=== PATIENT | female | born 1985 | race Caucasian/White ===

== ENCOUNTER 2022-01-25 00:55 | Inpatient (IN) | payer BC ==
[2022-01-25] MEDS ORDERED: ELECTROLYTE-148 SOLN 500 ML IV ONE (01:15)
[2022-01-25 02:27] VITALS: BMI 28.7
[2022-01-25 02:27] LABS: BASO % 0.3 % (0-2.0); EOS % 1.2 % (0-4.5); HEMATOCRIT 37.4 % (32.4-45.2); HEMOGLOBIN 12.8 GM/dL (10.7-15.3); LYMPH % 26.1 % (8-40); MCH 30.2 pg (25.7-33.7); MCHC 34.1 g/dl (32.0-36.0); MEAN CELL VOLUME 88.5 fl (80-96); MEAN PLT VOLUME 8.2 fl (7.5-11.1); MONO % 8.8 % (3.8-10.2); NEUT % 63.6 % (42.8-82.8); PLATELET COUNT 258 10^3/uL (134-434); RBC 4.23 M/mm3 (3.60-5.2); RDW 14.2 % (11.6-15.6); WHITE BLOOD COUNT 9.6 K/mm3 (4.0-10.0)
[2022-01-25 02:45] LABS: INR 0.94 (0.83-1.09); PROTHROMBIN TIME (PATIENT) 10.8 SEC (9.7-13.0)
[2022-01-25 02:48] LABS: ACTIVATED PTT 25.2 SECONDS (25.2-36.5)
[2022-01-25] MEDS ORDERED: TERBUTALINE SULFATE 1 MG/1 ML VIAL SQ ONE ×2 (02:49→06:30)
[2022-01-25 02:54] LABS: CALCIUM 8.9 mg/dL (8.5-10.1)
[2022-01-25] MEDS ORDERED: CITRIC ACID/SODIUM CITRATE 30 ML UNIT-DOSE CUP PO ONE (02:54)
[2022-01-25 02:55] LABS: BLOOD UREA NITROGEN 8.3 mg/dL (7-18)
[2022-01-25] MEDS ORDERED: ceFAZolin 2 GRAM PREMIX BAG IVPB STA (02:56)
[2022-01-25 02:59] LABS: CREATININE 0.5 mg/dL (0.55-1.3)
[2022-01-25] MEDS ORDERED: ONDANSETRON 4 MG/2 ML VIAL IVPUSH PRN (03:06)
[2022-01-25] MEDS ORDERED: morphine SULFATE/PF 1 MG/2 ML (2cc Syringe - QUVA) EP ONE (03:06)
[2022-01-25] MEDS ORDERED: SODIUM CHLORIDE 0.9% P/F 10 ML VIAL IJ ONE (03:16)
[2022-01-25] MEDS ORDERED: ceFAZolin SODIUM 1 GM VIAL ONE (03:16)
[2022-01-25] MEDS ORDERED: PHENYLEPHRINE HCL 10 MG/1 ML SINGLE DOSE VIAL ONE (03:33)
[2022-01-25] MEDS ORDERED: OXYTOCIN 10 UNITS/ML VIAL ONE ×2 (03:58→04:42)
[2022-01-25] MEDS ORDERED: ONDANSETRON 4 MG/2 ML VIAL ONE (04:06)
[2022-01-25] MEDS ORDERED: MIDAZOLAM HCL 2 MG/2 ML SINGLE DOSE VIAL ONE (04:17)
[2022-01-25] MEDS ORDERED: IBUPROFEN 800 MG/8 ML IJ IVPB PRN (04:53)
[2022-01-25] MEDS ORDERED: METHYLERGONOVINE MALEATE 0.2 MG/1 ML AMP IM PRN (04:53)
[2022-01-25] MEDS ORDERED: ACETAMINOPHEN 325 MG TABLET (FP) PO PRN (04:53)
[2022-01-25] MEDS: OXYTOCIN 20 UNITS in 0.9% NS 20 UNIT/1,000 ML INFUS.BAG IV SCH ×2 (05:00→16:32)
[2022-01-25 05:14] LABS: CORD BASE EXCESS -5.5 mmol/L (0-2); CORD HCO3 24.1 mmHg (20-29); CORD pH 7.193 (7.14-7.44)
[2022-01-25 05:17] LABS: CORD BASE EXCESS -6.1 mmol/L (0-2); CORD HCO3 21.2 mmHg (20-29); CORD PCO2 48.1 mmHg (30-78); CORD pH 7.262 (7.14-7.44)
[2022-01-25 07:54] LABS: HIV INTERPRETATION NEGATIVE (NEGATIVE)
[2022-01-25] MEDS: FERROUS SO4 325 MG TABLET (FP) PO SCH ×2 (10:37→22:14)
[2022-01-25] MEDS: PRENATAL VITAMINS W/ FOLIC ACID TABLET (FP) PO SCH (10:37)
[2022-01-25] MEDS: ENOXAPARIN NA (PORCINE) 40 MG/0.4 ML DISP.SYRIN SQ SCH (12:19)
[2022-01-25] MEDS ORDERED: OXYTOCIN 20 UNITS in 0.9% NS 20 UNIT/1,000 ML INFUS.BAG IV ONE (16:26)
[2022-01-25] MEDS ORDERED: oxyCODONE HCL 5 MG TABLET PO PRN (16:53)
[2022-01-25] MEDS: IBUPROFEN 600 MG TABLET (FP) PO PRN (18:26)
[2022-01-26] MEDS ORDERED: BISACODYL 10 MG SUPP.RECT RC PRN (04:53)
[2022-01-26] MEDS: oxyCODONE HCL 5 MG TABLET PO PRN ×2 (08:03→19:24)
[2022-01-26] MEDS: SIMETHICONE 80 MG TAB.CHEW (FP) PO PRN ×3 (08:03→19:24)
[2022-01-26 08:38] LABS: BASO % 0.3 % (0-2.0); EOS % 0.7 % (0-4.5); HEMATOCRIT 32.5 % (32.4-45.2); HEMOGLOBIN 11.1 GM/dL (10.7-15.3); LYMPH % 12.4 % (8-40); MCH 30.9 pg (25.7-33.7); MCHC 34.3 g/dl (32.0-36.0); MEAN CELL VOLUME 89.9 fl (80-96); MEAN PLT VOLUME 8.1 fl (7.5-11.1); MONO % 6.5 % (3.8-10.2); NEUT % 80.1 % (42.8-82.8); PLATELET COUNT 209 10^3/uL (134-434); RBC 3.61 M/mm3 (3.60-5.2); RDW 14.1 % (11.6-15.6); WHITE BLOOD COUNT 10.2 K/mm3 (4.0-10.0)
[2022-01-26] MEDS: FERROUS SO4 325 MG TABLET (FP) PO SCH ×2 (11:55→21:42)
[2022-01-26] MEDS: ENOXAPARIN NA (PORCINE) 40 MG/0.4 ML DISP.SYRIN SQ SCH (11:55)
[2022-01-26] MEDS: PRENATAL VITAMINS W/ FOLIC ACID TABLET (FP) PO SCH (11:55)
[2022-01-26] MEDS: IBUPROFEN 600 MG TABLET (FP) PO PRN (15:01)
[2022-01-27] MEDS: oxyCODONE HCL 5 MG TABLET PO PRN ×2 (08:04→20:46)
[2022-01-27] MEDS: ENOXAPARIN NA (PORCINE) 40 MG/0.4 ML DISP.SYRIN SQ SCH (09:51)
[2022-01-27] MEDS: PRENATAL VITAMINS W/ FOLIC ACID TABLET (FP) PO SCH (09:51)
[2022-01-27] MEDS: FERROUS SO4 325 MG TABLET (FP) PO SCH ×2 (09:51→21:01)
[2022-01-27] MEDS: IBUPROFEN 600 MG TABLET (FP) PO PRN (14:05)
[2022-01-27] MEDS: SIMETHICONE 80 MG TAB.CHEW (FP) PO PRN (20:45)
[2022-01-28 07:23] LABS: BASO % 0.6 % (0-2.0); EOS % 4.4 % (0-4.5); HEMATOCRIT 29.6 % (32.4-45.2); HEMOGLOBIN 10.2 GM/dL (10.7-15.3); LYMPH % 23.7 % (8-40); MCH 30.6 pg (25.7-33.7); MCHC 34.4 g/dl (32.0-36.0); MONO % 7.9 % (3.8-10.2); NEUT % 63.4 % (42.8-82.8); PLATELET COUNT 240 10^3/uL (134-434); RBC 3.32 M/mm3 (3.60-5.2); RDW 14.2 % (11.6-15.6); WHITE BLOOD COUNT 7.2 K/mm3 (4.0-10.0)
[2022-01-28] MEDS: PRENATAL VITAMINS W/ FOLIC ACID TABLET (FP) PO SCH (10:08)
[2022-01-28] MEDS: FERROUS SO4 325 MG TABLET (FP) PO SCH (10:08)
[2022-01-28] MEDS: ENOXAPARIN NA (PORCINE) 40 MG/0.4 ML DISP.SYRIN SQ SCH (10:08)
[2022-01-28 10:41] VITALS: BP 120/84; PULSE 80; TEMP 97.6
== END 2022-01-28 12:05 | disposition home or self-care (01) | DRG 788 ==
LOC: JLDR 00:55 → J3W 06:05
PROVIDERS: ADMIT Obstetrics & Gynecology; ATTEND Obstetrics & Gynecology
PROC: 10D00Z1 Extraction of Products of Conception, Low, Open Approach (ICD-10-PCS; principal; 2022-01-25)
DX: O42.02 Full-term premature rupture of membranes, onset of labor within 24 hours of rupture (principal); O34.211 Maternal care for low transverse scar from previous cesarean delivery; Z3A.38 38 weeks gestation of pregnancy; Z37.0 Single live birth
CPT/HCPCS: 36415; 36600; 80048; 82803; 85025; 85610; 85730; 86762; 86780; 86850; 86900; 86901; 87340; 87389; 88307-TC; C9803-CS; U0003; U0005